=== PATIENT | male | born 1965 | race Caucasian/White ===

== ENCOUNTER 2024-03-17 10:41 | Emergency (ER) | payer OTHER ==
--- NOTE | 2024-03-17 11:32 | RAD REPORT ---
EXAMINATION: XR Ankle Left 3 View CLINICAL INDICATION: Male, 59 years old. [facility] MAIN DEFORMITY Bed Name: 17 TECHNIQUE: 3 view radiographs of the left ankle were obtained. COMPARISON: No prior exam. FINDINGS: No bone or joint abnormality seen. Pronounced soft tissue swelling along the dorsal and lat eral aspect of the foot and ankle and distal lower leg. IMPRESSION: No acute osseous abnormalities soft tissue swelling as above..
--- NOTE | 2024-03-17 11:33 | RAD REPORT ---
EXAMINATION: XR Foot Left 3 View CLINICAL INDICATION: Male, 59 years old. [facility] MAIN SWELLING Bed Name: TECHNIQUE: 3 view radiographs of the left foot were obtained. COMPARISON: No prior exam. FINDINGS: No evidence of fracture or dislocation. Normal alignment. No evidence of arthropathy or oth er focal bone lesion. Pronounced soft tissue swelling along the dorsal and lateral aspects of the foot and ankle. No significant degenerative changes. IMPRESSION: No acute osseous abnormalities. Soft tissue swelling as above.
[2024-03-17] MEDS ORDERED: KETOROLAC 30 MG/ML INJ ONE (11:44)
[2024-03-17] MEDS ORDERED: NA CHLORIDE 0.9% 1,000 ML ONE (11:44)
[2024-03-17] MEDS ORDERED: HYDROCODONE/APAP 5/325 MG TAB ONE (11:44)
[2024-03-17 12:05] LABS: Absolute Eosinophils 0.1 K/uL (0-0.5); Absolute Lymphocytes (CBC) 1.6 K/uL (0.7-4.9); Absolute Monocytes 0.6 K/uL (0.1-1.3); Absolute Neutrophil 6.8 K/uL (1.8-8.0); Basophils % 0.5 % (0-1.3); Eosinophils % 0.9 % (0-4.4); Hematocrit 40.1 % (39.6-49.0); Hemoglobin 13.3 g/dL (13.6-17.9); Lymphocytes % 17.6 % (15.3-44.8); MCH 27.7 pg (27.0-35.0); MCHC 33.1 g/dL (32.0-36.0); MCV 83.7 fL (80-100); MPV 7.2 fL (7.6-11.3); Monocytes % 6.7 % (3.3-12.3); Neutrophils % 74.3 % (41.7-73.7); Nucleated Red Blood Cells % 0.4 % (0-0); Platelets 250 thou/uL (152-406); Red Cell Distribution Width 15.6 % (12.1-15.2)
[2024-03-17 12:21] LABS: Albumin 3.2 g/dL (3.4-5.0); Albumin/Globulin Ratio 0.8 (1.1-1.8); Anion Gap 10.3 mEq/L (5.0-15.0); Bilirubin Total 0.2 mg/dL (0.2-1.0); Globulin 3.8 g/dL (2.3-3.5); Potassium 3.3 mEq/L (3.5-5.1)
--- NOTE | 2024-03-17 12:32 | ER ---
Nurse's Notes [facility] Name: Stanislav Baron Age: 59 yrs Sex: Male : 1965 Arrival Date: 03/17/2024 Time: 10:41 Bed 17 Private MD: Diagnosis: Cellulitis of left lower limb;Pain in left ankle and joints of left foot Presentation: 03/17 10:45 Chief complaint: EMS states: right foot swollen and painful for 3 days, its a ko1 reoccurring issue. Coronavirus screen: At this time, the client does not indicate any symptoms associated with coronavirus-19. Ebola Screen: No symptoms or risks identified at this time. Initial Sepsis Screen: Does the patient meet any 2 criteria? No. Patient's initial sepsis screen is negative. Does the patient have a suspected source of infection? No. Patient's initial sepsis screen is negative. Risk Assessment: Do you want to hurt yourself or someone else? Patient reports no desire to harm self or others. Onset of symptoms is unknown. 10:45 Method Of Arrival: EMS: [facility] ko1 10:45 Acuity: BEN 3 ko1 Triage Assessment: 11:00 General: Appears unkempt, Behavior is calm, cooperative, appropriate for age. Pain: ko1 Complains of pain in left leg. EENT: No deficits noted. No signs and/or symptoms were reported regarding the EENT system. Neuro: No deficits noted. Cardiovascular: No deficits noted. Respiratory: No deficits noted. GI: No deficits noted. No signs and/or symptoms were reported involving the gastrointestinal system. : No deficits noted. No signs and/or symptoms were reported regarding the genitourinary system. Derm: Skin is intact, Skin is red, swollen. Musculoskeletal: No deficits noted. No signs and/or symptoms reported regarding the musculoskeletal system. Historical: - Allergies: 11:00 No Known Allergies; ko1 - Home Meds: 11:00 Unable to obtain [Active]; ko1 - PMHx: 11:00 Hypercholesterolemia; ko1 - Immunization history:: Adult Immunizations unknown. - Infectious Disease History:: Denies. - Social history:: Smoking status: Patient/guardian denies using tobacco, but has a distant history of tobacco abuse. Screenin:02 [facility] ED Fall Risk Assessment (Adult) History of falling in the last 3 months, ko1 including since admission No falls in past 3 months (0 pts) Confusion or Disorientation No (0 pts) Intoxicated or Sedated No (0 pts) Impaired Gait Yes (1 pt) Mobility Assist Device Used Yes (1 pt) Altered Elimination No (0 pt) Score/Fall Risk Level 0 - 2 = Low Risk Oriented to surroundings, Maintained a safe environment, Educated pt \T\ family on fall prevention, incl call for assistance when getting out of bed, Assessed \T\ reinforced patient's understanding of fall precautions, Hourly rounding (assess needs \T\ fall precautionary measures) done. Abuse screen: Denies threats or abuse. Denies injuries from another. Nutritional screening: No deficits noted. Tuberculosis screening: No symptoms or risk factors identified. Assessment: 11:02 Reassessment: see triage. ko1 12:45 Reassessment: patient refused 2nd set of blood cultures. ko1 Vital Signs: 10:45 BP 146 / 72; Pulse 85; Resp 17; Temp 98; Pulse Ox 96% on R/A; ko1 11:42 Weight 108.86 kg; ko1 12:18 BP 149 / 69; Pulse 85; Resp 15; Pulse Ox 98% ; ko1 ED Course: 10:43 Patient arrived in ED. em1 10:43 Catalina Pritchard, LADAN is Primary Nurse. ko1 10:45 Tiffani Singer MD is Attending Physician. gb1 11:00 Triage completed. ko1 11:00 Arm band placed on right wrist. Patient placed in an exam room, on a stretcher, on ko1 pulse oximetry, Patient notified of wait time. 11:01 Ankle Left 3 View XRAY In Process Unspecified. EDMS 11:01 Foot Left 3 View XRAY In Process Unspecified. EDMS 11:02 Patient has correct armband on for positive identification. Bed in low position. Call ko1 light in reach. Side rails up X2. Provided Education on: xray. Pulse ox on. NIBP on. Door closed. Noise minimized. Lights dimmed. Warm blanket given. Pillow given. 11:45 Inserted saline lock: 22 gauge in right hand, using aseptic technique. Blood collected. ko1 Flushed with 10 mL NS. 12:00 Initial lab(s) drawn, by me, sent to lab. First set of blood cultures drawn by me, EKG ko1 done, by ED staff, reviewed by Tiffani Singer MD. 12:17 CMP Sent. ko1 12:17 Lactate w/ 2H reflex if indic. Sent. ko1 13:42 No provider procedures requiring assistance completed. IV discontinued, intact, ko1 bleeding controlled, No redness/swelling at site. Pressure dressing applied. Administered Medications: 11:47 Drug: HYDROcodone-acetaminophen PO 5 mg-325 mg 1 tabs PO once Route: PO; ko1 12:36 Follow up: Response: No adverse reaction ko1 11:47 Drug: Ketorolac IVP 15 mg IVP once Route: IVP; Site: right hand; ko1 12:03 Follow up: Response: No adverse reaction ko1 12:17 Drug: NS 0.9% IV (30 ml/kg) 30 ml/kg IV at bolus once; Sepsis Protocol; to be given as ko1 a bolus over 90 minutes Route: IV; Rate: bolus; Site: right hand; 13:13 Follow up: Response: No adverse reaction; IV Status: Order to discontinue infusion; IV ko1 Intake: 1000ml 12:36 Drug: Ketorolac IVP 15 mg IVP once Route: IVP; Site: right hand; ko1 12:51 Follow up: Response: No adverse reaction ko1 Medication: 11:02 VIS not applicable for this client. ko1 Intake: 13:13 IV: 1000ml; Total: 1000ml. ko1 Outcome: 12:31 Discharge ordered by . gb1 13:42 Discharged to home via wheelchair, with friend, ko1 13:42 Condition: stable 13:42 Discharge instructions given to patient, Instructed on discharge instructions, follow up and referral plans. medication usage, Demonstrated understanding of instructions, follow-up care, medications, Prescriptions given X 2, 13:43 Patient left the ED. ko1 Signatures: Dispatcher [employer] EDMS Magan Randall1 Catalina Pritchard, RN RN amber1 Tiffani Singer MD MD gb1 Corrections: (The following items were deleted from the chart) 13:43 13:42 Discharge instructions given to patient, Instructed on discharge instructions, ko1 follow up and referral plans. medication usage, Demonstrated understanding of instructions, follow-up care, medications, Prescriptions given X 1, ko1
--- NOTE | 2024-03-17 12:32 | EDPHYS ---
Physician Documentation [facility] Name: Stanislav Baron Age: 59 yrs Sex: Male : 1965 Arrival Date: 03/17/2024 Time: 10:41 Bed 17 Private MD: ED Physician Tiffani Singer HPI: 03/17 11:48 This 59 yrs old Male presents to ER via EMS with unknown complaint. gb1 11:48 Mr. Rueda is a 59-year-old male that states that his left ankle has been red and gb1 swollen intermittently for a year now. He states that it swells up and is red and then takes 2 to 3 days to have the swelling improved. He states it does go back to looking normal like the right ankle. He denies diabetes, or any trauma related to the left ankle swelling. He does have a history of a self-reported brain tumor, hyperlipidemia and anxiety with depression.. Historical: - Allergies: 11:00 No Known Allergies; ko1 - Home Meds: 11:00 Unable to obtain [Active]; ko1 - PMHx: 11:00 Hypercholesterolemia; ko1 - Immunization history:: Adult Immunizations unknown. - Infectious Disease History:: Denies. - Social history:: Smoking status: Patient/guardian denies using tobacco, but has a distant history of tobacco abuse. Exam: 11:48 Constitutional: This is a well developed, well nourished patient who is awake, alert, gb1 and in no acute distress. Head/Face: Normocephalic, atraumatic. Eyes: Pupils equal round and reactive to light, extra-ocular motions intact. Lids and lashes normal. Conjunctiva and sclera are non-icteric and not injected. Cornea within normal limits. Periorbital areas with no swelling, redness, or edema. ENT: Nares patent. No nasal discharge, no septal abnormalities noted. Tympanic membranes are normal and external auditory canals are clear. Oropharynx with no redness, swelling, or masses, exudates, or evidence of obstruction, uvula midline. Mucous membranes moist. Neck: Trachea midline, no thyromegaly or masses palpated, and no cervical lymphadenopathy. Supple, full range of motion without nuchal rigidity, or vertebral point tenderness. No Meningismus. Chest/axilla: Normal chest wall appearance and motion. Nontender with no deformity. No lesions are appreciated. Cardiovascular: Regular rate and rhythm with a normal S1 and S2. No gallops, murmurs, or rubs. Normal PMI, no JVD. No pulse deficits. Respiratory: Lungs have equal breath sounds bilaterally, clear to auscultation and percussion. No rales, rhonchi or wheezes noted. No increased work of breathing, no retractions or nasal flaring. Abdomen/GI: Soft, non-tender, with normal bowel sounds. No distension or tympany. No guarding or rebound. No evidence of tenderness throughout. Back: No spinal tenderness. No costovertebral tenderness. Full range of motion. MS/ Extremity: Pulses equal, no cyanosis. Neurovascular intact. Limited range of motion secondary to pain. The distal half of the left calf is erythematous with swelling as well as the left ankle and up to the left midfoot. Pulses are intact DP/PT. There is no obvious deformity on exam. Vital Signs: 10:45 BP 146 / 72; Pulse 85; Resp 17; Temp 98; Pulse Ox 96% on R/A; ko1 11:42 Weight 108.86 kg; ko1 12:18 BP 149 / 69; Pulse 85; Resp 15; Pulse Ox 98% ; ko1 MDM: 10:48 Medical Screening Exam initiated gb1 11:48 ED course: 59-year-old male with left ankle swelling concerning for cellulitis versus gb1 gouty arthritis.. 12:29 Data reviewed: vital signs, nurses notes, lab test result(s), CBC, white blood cell gb1 count, hemoglobin, hematocrit, platelets, electrolytes, sodium, potassium, chloride, serum bicarbonate, BUN, creatinine, serum glucose, radiologic studies, plain films. ED course: 59-year-old male with left ankle and distal calf erythema and edema. Concern for acute cellulitis doubt compartment syndrome. Also consider gouty arthritis. I recommend anti-inflammatories as well as antibiotics and recheck with his primary care doctor in 2 to 3 days. Patient is not a diabetic and has normal blood sugars today otherwise has a normal white blood cell count his lactic is mildly elevated at 2.4 but at this time of not concern for sepsis. Patient does not have any other SIRS criteria. Discharge home with explicit return precautions compliant with patient prior to discharge home today.. 03/17 11:29 Order name: Blood Culture Adult (2) 03/17 11:29 Order name: CBC with Diff; Complete Time: 12:26 03/17 11:29 Order name: CMP; Complete Time: 12:26 03/17 11:29 Order name: Lactate w/ 2H reflex if indic.; Complete Time: 12:26 03/17 12:27 Order name: Ghost Lactate-NO COLLECT Timer EDCT 03/17 10:48 Order name: Ankle Left 3 View XRAY; Complete Time: 11:48 03/17 10:48 Order name: Foot Left 3 View XRAY; Complete Time: 11:48 03/17 11:29 Order name: Accucheck; Complete Time: 12:17 03/17 11:29 Order name: Cardiac monitoring; Complete Time: 11:35 03/17 11:29 Order name: EKG - Nurse/Tech; Complete Time: 11:58 03/17 11:29 Order name: IV Saline Lock - Large Bore; Complete Time: 11:43 03/17 11:29 Order name: Labs collected and sent; Complete Time: 12:17 03/17 11:29 Order name: O2 Per Protocol; Complete Time: 11:34 03/17 11:29 Order name: O2 Sat Monitoring; Complete Time: 11:34 03/17 11:29 Order name: Vital Signs; Complete Time: 11:35 gb Administered Medications: 11:47 Drug: HYDROcodone-acetaminophen PO 5 mg-325 mg 1 tabs PO once Route: PO; ko1 12:36 Follow up: Response: No adverse reaction ko1 11:47 Drug: Ketorolac IVP 15 mg IVP once Route: IVP; Site: right hand; ko1 12:03 Follow up: Response: No adverse reaction ko1 12:17 Drug: NS 0.9% IV (30 ml/kg) 30 ml/kg IV at bolus once; Sepsis Protocol; to be given as ko1 a bolus over 90 minutes Route: IV; Rate: bolus; Site: right hand; 13:13 Follow up: Response: No adverse reaction; IV Status: Order to discontinue infusion; IV ko1 Intake: 1000ml 12:36 Drug: Ketorolac IVP 15 mg IVP once Route: IVP; Site: right hand; ko1 12:51 Follow up: Response: No adverse reaction ko1 Disposition Summary: 03/17/24 12:31 Discharge Ordered Notes: Location: Home gb1 Problem: chronic gb1 Symptoms: are unchanged gb1 Condition: Stable gb1 Diagnosis - Cellulitis of left lower limb gb1 - Pain in left ankle and joints of left foot gb1 Followup: gb1 - With: Private Physician - When: 2 - 3 days - Reason: Wound Recheck Discharge Instructions: - Discharge Summary Sheet gb1 - Cellulitis, Adult gb1 Forms: - Medication Reconciliation Form gb1 - Antibiotic Education gb1 - Prescription Opioid Use gb1 - Patient Portal Instructions gb1 - Leadership Thank You Letter gb1 Prescriptions: - Ibuprofen 800 mg Oral Tablet - take 1 tablet ORAL route every 8 hours As needed take with food; 30 tablet; gb1 Refills: 0, Product Selection Permitted - Doxycycline Hyclate 100 mg Oral Tablet - take 1 tablet ORAL route every 12 hours; 20 tablet; Refills: 0, Product gb1 Selection Permitted Signatures: Dispatcher [employer] Catalina Hansen RN RN ko1 Tiffani Singer MD MD gb1 Corrections: (The following items were deleted from the chart) 11:29 11:29 BLOOD CULTURE*+BA.LAB.BRZ ordered. EDMS EDMS 11:29 11:29 CBC+H.LAB.BRZ ordered. EDMS EDMS 11:29 11:29 COMPREHENSIVE METABOLIC PANEL+C.LAB.BRZ ordered. EDMS EDMS 11:29 11:29 LACTATE+C.LAB.BRZ ordered. EDMS EDMS
[2024-03-17 14:34] VITALS: TEMP 98
[2024-03-17 14:40] VITALS: BP 149/69; O2SAT 98
--- NOTE | 2024-03-24 12:18 | EKG ---
Test Date: 2024-03-17 Test Time: 11:55:05 Blast Setter: LOVE MEASUREMENT RESULTS: Intervals: Rate: 82 DC: 170 QRSD: 136 QT: 412 QTc: 481 Java: P: 52 DC: 170 QRS: 86 T: 83 INTERPRETIVE STATEMENTS: Normal sinus rhythm Right bundle branch block Abnormal ECG No previous ECG available for comparison Electronically Signed On 03-24-24 12:14:11 SIGNAL PERSON by Kush Gasca
== END 2024-03-17 13:43 | disposition home or self-care (01) ==
LOC: ER 10:41
DX: L03.116 Cellulitis of left lower limb (principal)
CPT/HCPCS: 96365; 93005; 87040; 85025; 36415; 83605; 80053; 73630; 73610; 96375; 99285; J7030

== ENCOUNTER 2024-03-28 12:26 | Emergency (ER) | payer OTHER ==
--- OUTSIDE RECORDS SUMMARY | 2024-03-28 12:28 | XMS REPORT | Clinical Summary ---
Author Name Unknown Organization [facility] Address [address] [place] [address] Care Team Providers Care Decal Maker Name Role Phone Unavailable Primary Care Provider Unavailabl e Social History Tobacco Use Types Packs/Day Years Used Date Smoking Tobacco: Never Assessed Sex and Gender Information Value Date Recorded Sex Assigned at Not on file Legal Sex Male 7:16 AM CDT Gender Identity Not on file Sexual Orientation Not on file Plan of Treatment Not on file
--- NOTE | 2024-03-28 13:00 | RAD REPORT ---
EXAM: CT brain without contrast HISTORY: HEADACHE COMPARISON: None TECHNIQUE: Multiple contiguous axial images were obtained and a CT of the brain without contrast. Sag ittal and coronal reformats were performed. One or more of the following dose reduction techniques were used: Automated exposure control, adjust ment of the mA and/or kV according to patient size, and/or iterative reconstruction. FINDINGS: No evidence of hydrocephalus, intracranial hemorrhage, or extra-axial fluid collection. The brain is normal in morphology. Sella turcica appears enlarged. No evidence of midline shift or a reas of brain edema. The calvarium is intact. Mild mucoperiosteal thickening of several paranasal sinuses. IMPRESSION: No evidence of acute intracranial abnormality. Sella turcica appears enlarged. A pituitary mass is possible. Recommend MRI brain with contrast for f urther evaluation. This can be performed on a nonemergent basis.
--- NOTE | 2024-03-28 13:01 | RAD REPORT ---
EXAMINATION: ONE VIEW CHEST XR CLINICAL INDICATION: COUGH TECHNIQUE: Frontal chest projection is submitted. Examination is limited by patient positioning and t echnique. COMPARISON: No prior exam. FINDINGS: Mild discoid atelectasis is seen in the left lung base. The lungs are otherwise clear. The heart is u pper limit of normal in size. No displaced fractures identified.
[2024-03-28 13:15] LABS: Absolute Basophils 0.1 K/uL (0-0.5); Absolute Lymphocytes (CBC) 1.7 K/uL (0.7-4.9); Absolute Monocytes 0.4 K/uL (0.1-1.3); Absolute Neutrophil 16.9 K/uL (1.8-8.0); Basophils % 0.4 % (0-1.3); Hematocrit 49.7 % (39.6-49.0); Hemoglobin 16.1 g/dL (13.6-17.9); Lymphocytes % 8.7 % (15.3-44.8); MCH 27.1 pg (27.0-35.0); MCHC 32.3 g/dL (32.0-36.0); MCV 83.8 fL (80-100); MPV 6.9 fL (7.6-11.3); Monocytes % 2.3 % (3.3-12.3); Neutrophils % 88.6 % (41.7-73.7); Nucleated Red Blood Cells % 0.1 % (0-0); Platelets 395 thou/uL (152-406); RBC Red Blood Cell Count 5.93 M/uL (4.33-5.43); Red Cell Distribution Width 16.3 % (12.1-15.2)
[2024-03-28] MEDS ORDERED: DIPHENHYDRAMINE 50 MG/ML VIAL ONE (13:16)
[2024-03-28] MEDS ORDERED: METOCLOPRAMIDE 10 MG/2mL INJ ONE (13:16)
[2024-03-28] MEDS ORDERED: MORPHINE 2 MG/ML SYR ONE (13:17)
[2024-03-28 13:34] LABS: ALT/SGPT 25 U/L (16-61); Albumin 3.7 g/dL (3.4-5.0); Albumin/Globulin Ratio 0.9 (1.1-1.8); Alkaline Phosphatase 98 U/L (45-117); Anion Gap 12.6 mEq/L (5.0-15.0); BUN Blood Urea Nitrogen 23 mg/dL (7-18); Bicarbonate 25 mEq/L (21-32); Bilirubin Total 0.3 mg/dL (0.2-1.0); Globulin 4.1 g/dL (2.3-3.5); Glomerular Filtration Rate 91 ml/min (=/>90); Glucose Level 121 mg/dL (74-106); Magnesium 2.4 mg/dL (1.6-2.4); Potassium 4.6 mEq/L (3.5-5.1); Protein, Total 7.8 g/dL (6.4-8.2); Sodium Level 132 mEq/L (136-145)
[2024-03-28 13:35] LABS: AST/SGOT < 10 U/L (15-37); Bilirubin Direct < 0.2 mg/dL (0-0.2); Bilirubin Indirect, Calculated 0.1 mg/dL (0.2-0.8)
[2024-03-28 14:01] LABS: SARS-CoV-2 Antigen CONTROL BLUE LINE VIS/BG OK; SARS-CoV-2 Antigen Rapid Res Negative (Negative)
[2024-03-28] MEDS ORDERED: KETOROLAC 30 MG/ML INJ ONE (14:46)
[2024-03-28] MEDS ORDERED: dexAMETHasone 10 MG/ML VIAL ONE (14:50)
[2024-03-28] MEDS ORDERED: NA CHLORIDE 0.9% 500 ML ONE (14:50)
[2024-03-28 15:17] LABS: Platelet Estimate ADEQ; White Blood Cell Scan OK (OK)
[2024-03-28 15:18] LABS: Blood Morphology Comment NOTED (NOT SEEN); Polychromasia SLIGHT; Toxic Granulation PRESENT
[2024-03-28] MEDS ORDERED: droPERidol 5 MG/2 ML VIAL ONE (16:33)
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
[2024-03-28 18:26] VITALS: TEMP 97.9
[2024-03-28 18:37] VITALS: O2SAT 97
[2024-03-28 18:45] VITALS: BP 159/77
--- NOTE | 2024-03-31 13:03 | EKG ---
Test Date: 2024-03-28 Test Time: 12:39:32 Hospital Nurse: CELENA MEASUREMENT RESULTS: Intervals: Rate: 64 MN: 170 QRSD: 140 QT: 438 QTc: 451 [place]: P: 39 MN: 170 QRS: 83 T: 77 INTERPRETIVE STATEMENTS: Normal sinus rhythm Right bundle branch block Abnormal ECG Compared to ECG 03/17/2024 11:55:05 No significant changes Electronically Signed On 03-31-24 12:59:52 [employer] by Kush Gasca
== END 2024-03-28 17:56 | disposition home or self-care (01) ==
LOC: ER 12:26
DX: R51.9 Headache, unspecified (principal); R05.9 Cough, unspecified; J02.9 Acute pharyngitis, unspecified; Z11.52 Encounter for screening for COVID-19; F17.210 Nicotine dependence, cigarettes, uncomplicated
CPT/HCPCS: 96361; 87070; 85025; 80048; 36415; 83735; 80076; 87081; 84484; 87807; 87804 ×2; 70450; 71045; 96375; 96374; 99285; 87811; J2765; J1200; J1100; J2270; J1790; J7040; 93005

== ENCOUNTER 2024-10-14 15:38 | Emergency (ER) | payer MEDICAID, OTHER ==
--- OUTSIDE RECORDS SUMMARY | 2024-10-14 15:41 | XMS REPORT | Clinical Summary ---
Author Name Unknown Organization [facility] Address [address] [place] [address] Care Team Providers Care Apiculturist Name Role Phone Unavailable Primary Care Provider [...]
[2024-10-14] MEDS ORDERED: HYDROCODONE/APAP 7.5/325 MG TAB ONE (15:45)
--- NOTE | 2024-10-14 16:30 | RAD REPORT ---
EXAMINATION: XR RIGHT SHOUDLER CLINICAL INDICATION: Male, 59 years old. pain sp fall RIGHT TECHNIQUE: Multiple views of the right shoulder were obtained. COMPARISON: No prior exam. FINDINGS: Mild AC joint and glenohumeral joint degenerative changes. No acute fracture or dislocatio n.
--- NOTE | 2024-10-14 16:44 | RAD REPORT ---
EXAM: CT brain without contrast HISTORY: pain sp fall COMPARISON: None TECHNIQUE: Multiple contiguous axial images were obtained and a CT of the brain without contrast. Sag ittal and coronal reformats were performed. One or more of the following dose reduction techniques were used: Automated exposure control, adjust ment of the mA and/or kV according to patient size, and/or iterative reconstruction. FINDINGS: No evidence of hydrocephalus, intracranial hemorrhage, or extra-axial fluid collection. The brain is normal in morphology. No evidence of midline shift or areas of brain edema. The calvarium is intact. The visualized paranasal sinuses and mastoid air cells are essentially clear . EXAM: CT of the cervical spine without contrast HISTORY: Neck pain, injury pain sp fall TECHNIQUE: Multiple contiguous axial images were obtained in a CT of the cervical spine without contr ast. Sagittal and coronal reformats were performed. FINDINGS: The vertebral bodies demonstrate normal height and alignment. No evidence of acute fracture or subluxation.. Mild mid cervical spondylosis. No prevertebral soft tissue swelling is seen. The posterior facets are well aligned. Normal alignment of the skull base with the cervical spine is seen. The lung apices are unremarkable. COMBINED IMPRESSION: No evidence of acute intracranial abnormality. No evidence of acute osseous abnormality of the cervical spine.
--- NOTE | 2024-10-14 16:48 | RAD REPORT ---
EXAMINATION: THORACIC SPINE 3 VIEWS CLINICAL INDICATION: Male, 59 years old. pain sp fall TECHNIQUE: AP, lateral views of the thoracic spine were obtained. COMPARISON: No prior exam. FINDINGS: ALIGNMENT: The thoracic spine has normal alignment. BONES: Mild diffuse osteopenia. DISCS: Disc thinning is present in the upper and mid thoracic spine. SOFT TISSUE: No soft tissue abnormalities. IMPRESSION: No acute thoracic spine abnormality.
--- NOTE | 2024-10-14 16:52 | RAD REPORT ---
EXAMINATION: LUMBAR SPINE MULTIPLE VIEWS CLINICAL INDICATION: Male, 59 years old. pain sp fall TECHNIQUE: Multiple views of the lumbar spine were obtained. COMPARISON: No prior exam. FINDINGS: For purposes of this dictation, it is assumed that there are 5 lumbar type vertebral bodies. ALIGNMENT: There is normal alignment of the lumbar spine. BONES: Vertebral bodies are normal in height. No aggressive osseous lesions. DISCS: Prominent disc thinning with posterior osteophyte lower lumbar levels. Vacuum disc degeneratio n L3-4 and L4-5. IMPRESSION: No acute lumbar spine abnormality. Moderate lower lumbar spondylosis.
--- NOTE | 2024-10-14 16:55 | RAD REPORT ---
EXAMINATION: XR RIGHT HIP CLINICAL INDICATION: . pain sp fall RIGHT TECHNIQUE: Multiple views of the right hip were obtained. COMPARISON: No prior exam. FINDINGS: Severe osteoarthritis is seen involving the right hip. Subchondral cysts are present superi or femoral head with large osteophyte. No acute fracture or dislocation seen.
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
--- NOTE | 2024-10-14 17:30 | ER ---
Nurse's Notes [facility] Name: Stanislav Baron Age: 59 yrs Sex: Male : 1965 Arrival Date: 10/14/2024 Time: 15:38 Bed 7 Private MD: Diagnosis: fall, contusion, DJD Presentation: 10/14 15:40 Chief complaint: Patient states: reports having a fall 3 days ago and now has R nh2 shoulder pain. Coronavirus screen: At this time, the client does not indicate any symptoms associated with coronavirus-19. Ebola Screen: No symptoms or risks identified at this time. Initial Sepsis Screen: Does the patient meet any 2 criteria? No. Patient's initial sepsis screen is negative. Does the patient have a suspected source of infection? No. Patient's initial sepsis screen is negative. Risk Assessment: Do you want to hurt yourself or someone else? Patient reports no desire to harm self or others. Onset of symptoms was October 11, 2024. Care prior to arrival: IV initiated. 20 GA, in the left hand, Glucose check: 90 30mg toradol via IV. 15:40 Method Of Arrival: EMS: [facility] nh2 15:40 Acuity: BEN 3 nh2 16:03 Mechanism of Injury: Fall. Trauma event details: [place] [address] Triage Assessment: 15:41 General: Appears uncomfortable, Behavior is calm, cooperative, appropriate for age, [facility] Reports fatigue for. Pain: Complains of pain in back and R shoulder Quality of pain is described as aching. Neuro: Denies headache. Cardiovascular: diaphoretic. Musculoskeletal: Reports pain in back and R shoulder. Musculoskeletal: Circulation, motion, and sensation intact. Capillary refill < 3 seconds, in bilateral fingers. Injury Description: Bruise. Trauma Activation: Not Applicable Physician: ED Physician; Name: ; Notified At: ; Arrived At: Physician: General Surgeon; Name: ; Notified At: ; Arrived At: Physician: Radiology; Name: ; Notified At: ; Arrived At: Physician: Respiratory; Name: ; Notified At: ; Arrived At: Physician: Lab; Name: ; Notified At: ; Arrived At: - Immunization history:: Adult Immunizations up to date. - Infectious Disease History:: Denies. - Immunization history: Last tetanus immunization: - up to date. - Social history:: Smoking status: Reported history of juuling and/or vaping. Screenin:48 [facility] ED Fall Risk Assessment (Adult) History of falling in the last 3 months, nh2 including since admission Yes- fall prone (multiple falls) (3 pts) Confusion or Disorientation No (0 pts) Intoxicated or Sedated No (0 pts) Impaired Gait No (0 pts) Mobility Assist Device Used Yes (1 pt) Altered Elimination No (0 pt) Score/Fall Risk Level 3 or more points = High Risk. [facility] ED Fall Risk Assessment (Adult) Score/Fall Risk Level 3 or more points = High Risk Oriented to surroundings, Maintained a safe environment, Educated pt \T\ family on fall prevention, incl call for assistance when getting out of bed. Abuse screen: Denies threats or abuse. Nutritional screening: No deficits noted. Tuberculosis screening: No symptoms or risk factors identified. Primary Survey: 16:02 NO uncontrolled hemorrhage observed. A: The client is awake and alert. The airway is ll1 patent. Breathing/Chest: Spontaneous respiratory effort, equal unlabored respirations, breath sounds clear bilaterally, regular pattern, symmetrical chest rise and fall. Circulation: No external hemorrhage present. Regular and strong central pulse, skin warm/dry/normal color. Disability Client is alert. Exposure/Environment: There is no evidence of uncontrolled external bleeding. Assessment: 15:50 General: Appears uncomfortable, Behavior is calm, cooperative, appropriate for age, nh2 Denies fever, feeling ill, fatigue, chills. Pain: Complains of pain in right arm Pain currently is 6 out of 10 on a pain scale. Quality of pain is described as aching, Pain began 2-3 days ago. Is intermittent. Neuro: Level of Consciousness is awake, alert, obeys commands, Oriented to. 17:40 Reassessment: Patient is alert, oriented x 3, equal unlabored respirations, skin aa5 warm/dry/pink. Vital Signs: 15:40 BP 135 / 79; Pulse 81; Resp 20; Temp 98(TE); Pulse Ox 96% on R/A; Weight 88.45 kg; nh2 Height 5 ft. 11 in. ; Pain 6/10; 15:48 BP 135 / 79; Pulse 81; Resp 20; Temp 98(TE); Pulse Ox 97% on R/A; Weight 88.45 kg; nh2 Height 5 ft. 11 in. ; Pain 6/10; 17:13 BP 135 / 83; Pulse 73; Resp 18; Pulse Ox 94% on R/A; iw 15:48 Body Mass Index 27.20 (88.45 kg, 180.34 cm) nh2 15:40 Pain Scale: Adult nh2 15:48 Pain Scale: Adult nh2 [place] Coma Score: 16:03 Eye Response: spontaneous(4). Motor Response: obeys commands(6). Verbal Response: ll1 oriented(5). Total: 15. Trauma Score (Adult): 16:03 Eye Response: spontaneous(1); Verbal Response: oriented(1); Motor Response: obeys ll1 commands(2); Systolic BP: > 89 mm Hg(4); Respiratory Rate: 10 to 29 per min(4); [place] Score: 15; Trauma Score: 12 ED Course: 15:39 Patient arrived in ED. em1 15:39 Arm band placed on Patient placed in an exam room, on a stretcher. ll1 15:40 Mode Lang MD is Attending Physician. jr11 15:41 Alexus Philip RN is Primary Nurse. ll1 15:42 No provider procedures requiring assistance completed. Maintain EMS IV. Dressing ll1 intact. Good blood return noted. Site clean \T\ dry. Gauge \T\ site: 20 G L wrist. 15:43 Patient has correct armband on for positive identification. Bed in low position. ll1 Provided Education on: ER procedures and process. 15:47 Triage completed. nh2 16:03 Patient maintains SpO2 saturation greater than 95% on room air. Thermoregulation: warm ll1 blanket given to patient. 16:25 Spine Thoracic Ap/Lat XRAY In Process Unspecified. EDMS 16:25 Shoulder Right (2 View) XRAY In Process Unspecified. EDMS 16:28 CT Head C Spine In Process Unspecified. EDMS 16:33 Spine Lumbar W obliques XRAY In Process Unspecified. EDMS 16:33 Hip Right 2 View XRAY In Process Unspecified. EDMS 17:19 IV discontinued, intact, bleeding controlled, No redness/swelling at site. Pressure nh2 dressing applied. Administered Medications: 15:48 Drug: Hydrocodone-Acetaminophen PO (7.5 mg-325 mg) 1 tabs PO once {Note: pain 7/10 RASS ll1 0.} Route: PO; 17:14 Follow up: Response: No adverse reaction; Pain is decreased iw Medication: 15:48 VIS not applicable for this client. nh2 Outcome: 17:30 Discharge ordered by . ama 17:40 Discharged to home via wheelchair, ayse 17:40 Condition: stable 17:40 Discharge instructions given to patient, Instructed on discharge instructions, follow up and referral plans. medication usage, Demonstrated understanding of instructions, follow-up care, medications, Prescriptions given X 1, 17:41 Patient left the ED. aa5 Signatures: Dispatcher [employer] EDMS Tessy York RN RN iw Magan Randall em1 Nella Erwin RN RN aa5 Alexus Philip RN RN ll1 Mode Lang MD MD jr11 Roger Calhoun Jr, RN RN nh2
[2024-10-14 17:48] VITALS: TEMP 98
[2024-10-14 17:50] VITALS: BP 135/83; O2SAT 94
== END 2024-10-14 17:41 | disposition home or self-care (01) ==
LOC: ER 15:38
DX: S40.011A Contusion of right shoulder, initial encounter (principal); M19.90 Unspecified osteoarthritis, unspecified site; M54.50 Low back pain, unspecified; R07.9 Chest pain, unspecified; W18.30XA Fall on same level, unspecified, initial encounter
CPT/HCPCS: 70450; 72070; 72110; 72125; 99284